=== PATIENT | male | born 1970 | race Caucasian/White ===

== ENCOUNTER 2024-12-01 09:30 | Outpatient (RCR) | payer MEDICAID, SELFPAY ==
--- NOTE | 2024-11-10 09:03 | PTNOTE_ITS ---
PT OP Initial Eval Patient Information Outpatient Physical Therapy Treatment Date: 11/10/24 Visit Reasons: right shoulder pain Medical Diagnosis: M25.511 Treatment Dx #1: R shoulder pain Start of Care: 11/10/24 Date of Onset: 2 yrs ago Smoking Status Smoking Status: Never smoker Initial Assessment Subjective: Pt is 54 yr old male who reports R shoulder pain x2 yrs. Increased pain with reaching up and behind the back. He is unable to sleep on his side due to pain and it hurts to reach his wallet. PMH: DM, high cholesterol Imaging: none Pt goal: better ROM Objective: R shoulder AROM: ? FF: 95 deg ? Abd: 90 deg ? ER: 65 deg ? HBB: to R glute with pain ? Strength: 3+/5 in all planes ? PROM: end-range pain with capsular tightness Assessment: Pt presentation consistent with adhesive capsulitis of?R ? shoulder. ROM limited in capsular pattern with pain that limits end-range ? tolerance into all planes but especially ER and IR.? Pt may benefit from ? skilled therapy and has fair rehab potential to meet goals. Short Term and Serology Technician Goals 1. Ind with HEP ? 2. Improved AROM of R shoulder to at least 135 deg FF, 125 deg abduction and 90 deg ? ER ? 3. Improved HBB ROM to L3 ? 4. Pt will reach OH x10 with <=4/10 pain Treatment Plan 1. Manual therapy ? 2. Therex ? 3. Modalities as indicated, moist heat pack, ice, electrical st imulation, Frequency and Duration: 2x a week for 8 weeks Certification Dates: 11/10/24 to 02/07/25 Procedure Charges OP PT Eval Mod Complex 30 minutes: Yes
--- NOTE | 2024-11-17 09:06 | PT.ODAYNRPT ---
PT Outpatient Daily Note OP Daily Note Outpatient Physical Therapy Treatment Date: 11/17/24 Visit Reasons: right shoulder pain Subjective: Pt c/o R shoulder pain and weakness. Objective: Please see flow sheet for ther ex list. Assessment: Pt demonstrates poor IR behind back, instructed on repeated shoulder extension pt tolerated well. Plan: Continue with poC. Length of Time (minutes) of Treatment: 30 Minutes Procedure Charges Therapeutic Exercise 30 minutes: Yes
--- NOTE | 2024-11-19 12:35 | PT.ODAYNRPT ---
PT Outpatient Daily Note OP Daily Note Outpatient Physical Therapy Treatment Date: 11/19/24 Visit Reasons: right shoulder pain Subjective: Continued R shoulder pain and tightness Objective: See F/S for therex MT: PROM into FF, abd and ER x7' to end-range Assessment: Pain limits PROM with manual therapy and AAROM therex Plan: Improve R shoulder ROM Length of Time (minutes) of Treatment: 30 Minutes Procedure Charges Therapeutic Exercise 30 minutes: Yes
--- NOTE | 2024-11-24 09:04 | PT.ODAYNRPT ---
PT Outpatient Daily Note OP Daily Note Outpatient Physical Therapy Treatment Date: 11/24/24 Visit Reasons: right shoulder pain Subjective: Pt reports r shoulder is stiff and achy. Objective: Please see flow sheet for ther ex list. Assessment: Performed PROM of R shoulder with stabilization of scapula, pt presents with excessive upward rotation of scapula with OH elevation. Plan: Continue with POC. Length of Time (minutes) of Treatment: 30 Minutes Procedure Charges Therapeutic Exercise 30 minutes: Yes
--- NOTE | 2024-11-26 09:27 | PT.ODAYNRPT ---
PT Outpatient Daily Note OP Daily Note Outpatient Physical Therapy Treatment Date: 11/26/24 Visit Reasons: right shoulder pain Subjective: Pt reports no changes to Rt shoulder, currently experiencing minimal pain. Objective: See F/S for therex performed Assessment: Min vc's required to perform wand exercises correctly, improved Rt shoulder ROM post cues. Increased pain with IR towel st, improved tolerance with vc to stretch at a tolerable range and slowly increase. Good tolerance with PROM to Rt shoulder. Advised to continue stretching at home, pt confirms he will perform HEP. Plan: Continue with POC Length of Time (minutes) of Treatment: 30 Minutes Procedure Charges Therapeutic Exercise 30 minutes: Yes
--- NOTE | 2024-12-01 10:12 | PT.ODAYNRPT ---
PT Outpatient Daily Note OP Daily Note Outpatient Physical Therapy Treatment Date: 12/01/24 Visit Reasons: right shoulder pain Subjective: Pt reports Rt shoulder is feeling the same with minimal pain and stiffness. Objective: See F/S for therex performed Assessment: Min vc's and tc's required to avoid trunk rotation with AAROM with dowel exercise, pt complied. Good tolerance to resisted rows and 4-way shoulder isometric exercise, no increase in pain. Fair tolerance with passive stretching of Lt shoulder into abuction and ER; tolerance improves with vc's to take deep breaths. Plan: Continue with POC Length of Time (minutes) of Treatment: 30 Minutes Procedure Charges Therapeutic Exercise 30 minutes: Yes
== END 2024-12-01 23:59 | disposition home or self-care (01) ==
LOC: CPTX 09:30
PROVIDERS: PCP Family Medicine; Referring Provider Family Medicine; Visit Provider Family Medicine
DX: M25.511 Pain in right shoulder (principal); E11.9 Type 2 diabetes mellitus without complications
CPT/HCPCS: 97110; 97162

== ENCOUNTER 2024-12-29 09:00 | Outpatient (RCR) | payer MEDICAID, SELFPAY ==
--- NOTE | 2024-12-03 09:12 | PT.ODAYNRPT ---
PT Outpatient Daily Note OP Daily Note Outpatient Physical Therapy Treatment Date: 12/03/24 Visit Reasons: right shoulder pain Subjective: Pt reports noticing little improvements with ROM and experiencing less pain. Objective: See F/S for therex performed Assessment: Improved tolerance with AAROM with dowel exercises, and requires less cues to avoid trunk rotation or upper trap compensation. Fair tolerance with manual passive stretching, frequent cues required to relax Rt arm and avoid helping into the movement. Plan: Continue with POC Length of Time (minutes) of Treatment: 30 Minutes Procedure Charges Therapeutic Exercise 30 minutes: Yes
--- NOTE | 2024-12-08 10:21 | PT.ODAYNRPT ---
PT Outpatient Daily Note OP Daily Note Outpatient Physical Therapy Treatment Date: 12/08/24 Visit Reasons: right shoulder pain Subjective: Pt reports improved ROM of R shoulder but still tight behind the back Objective: See F/S for therex MT: PROM into FF, abd, ER x7' with overpressure Assessment: Tightness and pain limit PROM into all planes Plan: Continue per POC Length of Time (minutes) of Treatment: 30 Minutes Procedure Charges Therapeutic Exercise 30 minutes: Yes
--- NOTE | 2024-12-10 10:28 | PT.ODAYNRPT ---
PT Outpatient Daily Note OP Daily Note Outpatient Physical Therapy Treatment Date: 12/10/24 Visit Reasons: right shoulder pain Subjective: Pt reports improved ROM of R shoulder but still tight behind the back Objective: See F/S for therex MT: PROM into FF, abd, ER x7' with overpressure Assessment: Tightness and pain limit PROM into all planes Plan: Continue per POC Length of Time (minutes) of Treatment: 30 Minutes Procedure Charges Therapeutic Exercise 30 minutes: Yes
--- NOTE | 2024-12-16 11:52 | PT.ODAYNRPT ---
PT Outpatient Daily Note OP Daily Note Outpatient Physical Therapy Treatment Date: 12/16/24 Visit Reasons: right shoulder pain Subjective: Pt reports improved ROM of R shoulder but still tight behind the back Objective: See F/S for therex MT: PROM into FF, abd, ER x7' with overpressure Assessment: Tightness and pain limit PROM into all planes Plan: Continue per POC Length of Time (minutes) of Treatment: 30 Minutes Procedure Charges Therapeutic Exercise 30 minutes: Yes
--- NOTE | 2024-12-22 10:43 | PT.ODAYNRPT ---
PT Outpatient Daily Note OP Daily Note Outpatient Physical Therapy Treatment Date: 12/22/24 Visit Reasons: right shoulder pain Subjective: Pt reports improved ROM of R shoulder but still tight behind the back Objective: See F/S for therex MT: PROM into FF, abd, ER x7' with overpressure Assessment: Improved PROM into all planes but capsular tightness and pain limit PROM into all planes Plan: Continue per POC Length of Time (minutes) of Treatment: 30 Minutes Procedure Charges Therapeutic Exercise 30 minutes: Yes
--- NOTE | 2024-12-24 10:35 | PT.ODAYNRPT ---
PT Outpatient Daily Note OP Daily Note Outpatient Physical Therapy Treatment Date: 12/24/24 Visit Reasons: right shoulder pain Subjective: Pt reports R shoulder is moving better. Objective: Please see flow sheet for ther ex list. Assessment: Pt guarded during PROM, able to relax post cues and verbal instruction resulting in increase ROm. Plan: Continue with pOC. Length of Time (minutes) of Treatment: 30 Minutes Procedure Charges Therapeutic Exercise 30 minutes: Yes
--- NOTE | 2024-12-29 09:38 | PT.ODS1RPT ---
PT OP Progress/Discharge Note Date of Service: 12/29/24 Progress Note/DC Note Progress Note/Discharge Note: Progress Note Patient Information Visit Reasons: right shoulder pain Service Continue Service or Discharge: Continue Service Status Subjective: Pt reports improved ROM of R shoulder but still tight reaching behind the back Objective: See F/S for therex MT: PROM into FF, abd, ER x7' with overpressure R shoulder AROM: FF: 105 deg Abd: 90 deg ER: 75 deg HBB: to L5 Strength: 4-/5 in all planes Assessment: Pt has attended 12/12 visits with improved PROM into all planes but capsular tightness and pain limit PROM consistent with adhesive capsulitis. He hasn't met ROM goals but is doing HEP to meet that goal. Pt would benefit from continued therapy to meet goals. Plan: Request additional visits x8 and authorization to extend POC to 20 visits and dates to 03/10/25 Procedure Charges Therapeutic Exercise 30 minutes: Yes
== END 2025-01-01 23:59 | disposition home or self-care (01) ==
LOC: CPTX 09:00
PROVIDERS: PCP Family Medicine; Referring Provider Family Medicine; Visit Provider Family Medicine
DX: M25.511 Pain in right shoulder (principal)
CPT/HCPCS: 97110